=== PATIENT | female | born 1935 | race Hispanic/Latino ===

== ENCOUNTER 2022-03-09 09:47 | Emergency (ER) | payer MEDICARE ==
[2022-03-09 10:35] VITALS: BP 112/57
--- NOTE | 2022-03-10 10:35 | Electrocardiograph Report ---
[facility] Test Date: 2022-03-09 Test Time: 10:34:25 Pat Name: HOWIE MARSH Department: Room: Gender: F Prep Room Supervisor: JODIE : [id number] Requested By: ZUHAIR CEDILLO Order Number: [id number] Reading MD: Elias Galaviz Measurements Intervals [place] Rate: 66 P: 76 ID: [id number] QRS: 21 QRSD: 91 T: 17 QT: 399 QTc: 420 Interpretive Statements Sinus rhythm Prolonged ID interval nonspecific st-t No previous ECG available for comparison Electronically Signed On 03-10-2022 10:35:11 EDT by Elias Galaviz
== END 2022-03-09 12:07 | disposition left against medical advice (07) ==
LOC: ED 09:47
DX: R00.2 Palpitations (principal); R53.1 Weakness; Z53.21 Procedure and treatment not carried out due to patient leaving prior to being seen by health care provider
CPT/HCPCS: 93005